=== PATIENT | male | born 1985 | race Caucasian/White ===

== ENCOUNTER 2021-08-01 06:46 | Emergency (ER) | payer OTHER ==
[2021-08-01 07:53] LABS: CORONAVIRUS COVID-19 NAA NEGATIVE (NEGATIVE)
[2021-08-01] MEDS ORDERED: Oseltamivir 75 MG Cap PO ONE (08:28)
== END 2021-08-01 09:00 | disposition home or self-care (01) ==
LOC: JD.ED 06:46
DX: J10.1 Influenza due to other identified influenza virus with other respiratory manifestations (principal); Z87.891 Personal history of nicotine dependence; Z20.822 Contact with and (suspected) exposure to COVID-19
CPT/HCPCS: 0240U; 99283; A9270